=== PATIENT | male | born 1985 | race Caucasian/White ===

== ENCOUNTER 2022-05-08 00:03 | Emergency (ER) | payer MEDICAID ==
[~2022-05-08] VITALS: Ht 188 cm; Wt 100.0 kg
[2022-05-08] MEDS ORDERED: IBUPROFEN 600MG TABLET PO STA (01:09)
[2022-05-08 01:29] LABS: BASOPHILS % 0.3 % (0.0-2.0); EOSINOPHILS % 0.2 % (0.0-5.0); HEMATOCRIT. 40.2 % (42.0-52.0); HEMOGLOBIN. 13.4 g/dL (14.0-18.0); LYMPHOCYTES % 10.4 % (20.0-50.0); MEAN CORPUSCULAR HEMOGLOBIN 29.5 pg (28.0-32.0); MEAN CORPUSCULAR VOLUME 88.3 fL (80.0-94.0); MEAN PLATELET VOLUME 7.8 fl (7.4-10.4); MONOCYTES % 5.4 % (2.0-8.0); NEUTROPHILS % 83.7 % (40.0-76.0); PLATELET 275 x1000/uL (130-400); RED BLOOD CELL COUNT 4.55 mill/uL (4.7-6.1); RED CELL DISTRIBUTION WIDTH 13.4 % (11.6-14.6)
[2022-05-08 01:32] LABS: CHLORIDE 109 mEq/L (98-107)
[2022-05-08 01:46] LABS: CLARITY URINE CLOUDY (CLEAR); COLOR URINE YELLOW (YELLOW); KETONES URINE TRACE (NEGATIVE); LEUKOCYTE ESTERASE URINE NEGATIVE (NEGATIVE); NITRITE URINE NEGATIVE (NEGATIVE); OCCULT BLOOD URINE 3+ (NEGATIVE); PROTEIN URINE 1+ (NEGATIVE); SPECIFIC GRAVITY URINE 1.032 (1.005-1.030)
[2022-05-08] MEDS ORDERED: ONDANSETRON HCL 4MG/2ML INJ IV STA (02:14)
[2022-05-08] MEDS ORDERED: SODIUM CHLORIDE 0.9% 1,000 ML IV ONE (02:15)
[2022-05-08] MEDS ORDERED: KETOROLAC 15MG/ML VIAL IV ONE (02:30)
[2022-05-08] MEDS ORDERED: IBUP-2029 MT (04:48)
[2022-05-08 05:24] VITALS: BP 120/79
== END 2022-05-08 05:28 | disposition home or self-care (01) ==
LOC: ER 00:03
DX: N23 Unspecified renal colic (principal)
CPT/HCPCS: 36415; 74018; 74176; 80053; 81003; 85025; 93005; 96374; 96375; 99285; J1885; J2405; J7030